=== PATIENT | male | born 1970 | race Caucasian/White ===

== ENCOUNTER 2024-12-08 12:29 | Outpatient (AMB) | payer OTHER, SELFPAY ==
--- NOTE | 2024-12-08 12:33 | MHC.PC.OV ---
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 by: Self / Same As Patient Allergies No Known Allergies Allergy (Verified 12/08/24 13:13) Medication List - Last Reconciled 12/08/24 by RICHELLE Ortiz atorvastatin 20 mg PO DAILY sertraline 50 mg PO DAILY Tobacco use date assessed: 12/08/24 Dental Screening Dental Screen Date: 12/08/24 Did you have a dental visit in the last 12 months?: No Did you have a dental problem in the last 6 months where you did not have access to dental care?: No Was dental information given to patient?: Patient declined [facility] Medical History Anxiety and depression Surgical History History of surgery of head S/P vasectomy S/P colonoscopy Family History Mother No problems noted. Father Prostate CA Social History Housing: Apartment Alcohol intake: never Patient Tobacco Use Status: Former Tobacco user e-Cigarette/Vaping Use: Never Used Second Hand Smoke Exposure: Yes Substance Use Type: Marijuana service: No Current occupational status: employed Current occupation: [employer] Current occupational exposures/hazards: No Cognitive needs: No Hearing needs: No Vision needs: Yes Questionnaire PHQ-9 Over the last 2 weeks, how often have you been bothered by any of the following problems? 1. Little interest or pleasure in doing things: not at all 2. Feeling down, depressed, or hopeless: not at all 3. Trouble falling or staying asleep, or sleeping too much: not at all 4. Feeling tired or having little energy: not at all 5. Poor appetite or overeating: not at all 6. Feeling bad about yourself - or that you are a failure or have let yourself or your family down: not at all 7. Trouble concentrating on things, such as reading the newspaper or watching television: not at all 8. Moving or speaking so slowly that other people could have noticed. Or the opposite - being so fidgety or restless that you have been moving around a lot more than usual: not at all 9. Thoughts that you would be better off or of hurting yourself in some way: not at all Total score: 0 Depression Screening Interpretation: Negative Depression Screening Done: Yes 72650 - PHQ-9 Billing: Yes Source: Developed by Drs. Fransisco Guardado, Kristy Lentz, Jose Mckeon and colleagues, with an educational robb from [employer]. Thrive Questionnaire Date Thrive assessed: 12/08/24 I am a: Patient What is your living situation today?: I have a steady place to live Within the past 12 months, did the food you bought not last and you didn't have the money to get more?: Never true Within the past 12 months, did you worry whether your food would run out before you got money to buy more?: Never true Do you have trouble paying for medicines?: No Do you have trouble getting transportation to medical appointments?: No Do you have trouble paying your heating and electricity bill?: No Do you have trouble taking care of your child, family member or friend?: No Do you have trouble with day-to-day activities such as bathing, preparing meals, shopping, managing finances, etc.?: No Are you currently unemployed and looking for a job?: No Are you interested in more education?: No Please select the resources that you would like help with: None Currently or been in a relationship where the following occur: No concerns reported THRIVE Score: 0 AUDIT C Alcohol Use Questionnaire (AUDIT-C) 1. How often do you have a drink containing alcohol?: Never 2. How many drinks containing alcohol do you have on a typical day when you are drinking?: 1 or 2 3. How often do you have six or more drinks on one occasion?: Never Total Score: 0 Score Reviewed/Action Taken: Yes CHINYERE-7 AMB Questionnaire CHINYERE-7 Date CHINYERE - 7 assessed: 12/08/24 Feeling nervous, anxious, or on edge: 0 = Not at all Not being able to stop or control worryin = Not at all Worrying too much about different things: 0 = Not at all Trouble relaxin = Not at all Being so restless that it is hard to sit still: 0 = Not at all Becoming easily annoyed or irritable: 0 = Not at all Feeling afraid as if something awful might happen: 0 = Not at all Total CHINYERE-7 score (0-4 normal; 5-9 mild; 10-14 moderate; 15-21 severe): 0 Source: Developed by Drs. Fransisco Guardado, Kristy Lentz, Jose Mckeon and colleagues, with an educational robb from [employer]. CHINYERE-7 Assessment Billing CHINYERE-7 Assessment Tool: CHINYERE-7 Assessment 98683 Physical exam (Primary Care) Vital Signs: Last Vital Signs Temp 97.9 F 12/08/24 12:35 Pulse 83 12/08/24 12:35 BP 116/72 12/08/24 12:35 Pulse Ox 96 12/08/24 12:35 BMI result Body Mass Index 27.9 Tobacco/Smoking Status: Tobacco use Status Tobacco use date assessed 12/08/24 12/08/24 12:35 Patient Tobacco Use Status Former Tobacco user 12/08/24 12:42 e-Cigarette/Vaping Use Never Used 12/08/24 12:42 PHQ-9: PHQ-9 Score PHQ-9: Total score 0 12/08/24 12:42 Depression Screening Interpretation: Negative Thrive Assessment: Date of Thrive Assessment Date Thrive assessed 12/08/24 12/08/24 12:35 Currently or been in a relationship where the following occur: No concerns reported Coding Level of Care Code New Pt Prev Care 40-64y(11650) Diagnoses Physical exam Z00.00 Screening for prostate cancer Z12.5 Lymph node enlargement R59.9 Smoker F17.200 Additional Codes CHINYERE-7 Assessment Billing - CHINYERE-7 Assessment Tool: CHINYERE-7 Assessment 46674 ([id number]) PHQ-9 - 15116 - PHQ-9 Billing: Yes ([id number]) Assessment & Plan Assessment & Plan (1) Physical exam: Code(s): Z00.00 - Encounter for general adult medical examination without abnormal findings Category: Medical (2) Screening for prostate cancer: Code(s): Z12.5 - Encounter for screening for malignant neoplasm of prostate Category: Medical (3) Lymph node enlargement: Code(s): R59.9 - Enlarged lymph nodes, unspecified Category: Medical (4) Smoker: Code(s): F17.200 - Nicotine dependence, unspecified, uncomplicated Category: Social Hx Plan . Orders: Orders Complete Blood Count Auto Diff Today Z00.00 - Encounter for general adult medical examination without abnormal findings UA CC w/rflx Micro + Cult Today Z00.00 - Encounter for general adult medical examination without abnormal findings Lipid Panel Today Z00.00 - Encounter for general adult medical examination without abnormal findings Prostate Specific Antigen Scr Today Z12.5 - Encounter for screening for malignant neoplasm of prostate US extremity nonvascular pimentel Today R59.9 - Enlarged lymph nodes, unspecified Comprehensive [place]. Panel Fast Today Z00.00 - Encounter for general adult medical examination without abnormal findings TSH reflex Free T4 Today Z00.00 - Encounter for general adult medical examination without abnormal findings Referrals Open Access Screening Colonoscopy Referral Z12.11 - Encounter for screening for malignant neoplasm of colon, Z12.12 - Encounter for screening for malignant neoplasm of rectum Lung Cancer Screening Referral F17.200 - Nicotine dependence, unspecified, uncomplicated
[2024-12-08 12:35] VITALS: BP 116/72; PULSE 83; TEMP 36.6; O2SAT 96; BMI 27.9
== END 2024-12-08 13:53 | disposition home or self-care (01) ==
PROVIDERS: PCP Nurse Practitioner Family; Visit Provider Nurse Practitioner Family
DX: Z00.00 Encounter for general adult medical examination without abnormal findings (principal); Z12.5 Encounter for screening for malignant neoplasm of prostate; R59.9 Enlarged lymph nodes, unspecified; F17.200 Nicotine dependence, unspecified, uncomplicated

== ENCOUNTER → 2024-12-08 12:29 | Outpatient (BNVA) | payer SELFPAY | PROVIDERS: PCP Nurse Practitioner Family; Visit Provider Nurse Practitioner Family | DX: Z00.00 Encounter for general adult medical examination without abnormal findings (principal); R59.9 Enlarged lymph nodes, unspecified; F41.9 Anxiety disorder, unspecified; F32.A Depression, unspecified; Z79.899 Other long term (current) drug therapy; Z87.891 Personal history of nicotine dependence | CPT/HCPCS: 96127 ==

== ENCOUNTER 2024-12-18 08:25 | Outpatient (REF) | payer OTHER, SELFPAY ==
--- NOTE | ~2024-12-18 | US_ITS ---
CLINICAL HISTORY: R59.9 - Enlarged lymph nodes, unspecified - LEFT AXILLARY US axilla limited Comparison: None Findings: There are no pathological appearing lymph nodes and no cystic or solid mass. IMPRESSION: Unremarkable axillary ultrasound. This document has been electronically signed by: Carlito El MD on 12/19/2024 09:09:52
[2024-12-18 10:20] LABS: MANUAL DIFF FLAG NO
[2024-12-18 10:25] LABS: Basophils Absolute Auto 0.1 X10*3/uL (0.0-0.2); Basophils Percent Auto 1.4 % (0-2); Eosinophils Absolute Auto 0.5 X10*3/uL (0.0-0.4); Eosinophils Percent Auto 4.9 % (0-4); Hematocrit 47.9 % (42.0-52.0); Hemoglobin 16.5 g/dl (14.0-18.0); Imm Gran Abs Auto 0.04 X10*3/uL (0.00-0.03); Imm Gran Pct Auto 0.4 % (0.0-0.4); Lymphocytes Absolute Auto 2.4 X10*3/uL (1.2-4.9); Mean Corpuscular HGB Conc 34.4 g/dl (31.0-36.0); Mean Corpuscular Hemoglobin 30.1 pg (27.0-33.0); Mean Corpuscular Volume 87.4 fL (80.0-98.0); Mean Platelet Volume 9.9 fL (9.4-12.4); Monocytes Absolute Auto 0.6 X10*3/uL (0.1-1.2); Neutrophils Absolute Auto 5.7 x10*3/uL (2.0-8.3); Neutrophils Percent Auto 61.3 % (45-73); Platelet Count 239 X10*3/uL (160-400); Red Blood Count 5.48 X10*6/uL (4.60-5.80); Red Cell Distribution Width 12.6 % (11.0-16.0); White Blood Count 9.3 X10*3/uL (4.8-10.8)
[2024-12-18 11:25] LABS: Alanine Aminotransferase 22 U/L (0-40); Alkaline Phosphatase 120 U/L (39-117); Anion Gap 9 (12-20); Aspartate Amino Transferase 24 U/L (5-37); Bilirubin Total 0.9 mg/dL (0.0-1.0); Blood Urea Nitrogen 18 mg/dL (9-16); Calcium 9.3 mg/dL (8.4-10.2); Carbon Dioxide 25 mmol/L (22-29); Chloride 109 mmol/L (96-108); Cholesterol 176 mg/dL (<200); Estimated Glomerular Filt Rate > 60; Glucose Fasting 105 mg/dL (60-99); HDL Cholesterol 42 mg/dL (>40); LDL Cholesterol Calculated 122 mg/dL (<100); Potassium 3.9 mmol/L (3.3-5.1); Sodium 139 mmol/L (135-145); Total Protein 7.5 g/dL (6.5-8.0); Triglycerides 64 mg/dL (<150)
[2024-12-18 11:28] LABS: Prostate Specific Antigen Scr 1.43 ng/mL (<0.05-4.0)
[2024-12-18 11:30] LABS: TSH reflex Free T4 1.07 uIU/mL (0.32-4.0)
[2024-12-18 14:07] LABS: Appearance Urine Clear; Color Urine Yellow; Glucose Urine UA Negative (Negative); Leukocyte Esterase Urine Negative (Negative); Nitrite Urine Negative (Negative); PH 5.5 (5.0-9.0); Urine Blood Negative (Negative); Urine Ketones Negative (Negative); Urine Protein Negative (Neg-Trace)
== END 2024-12-18 08:26 | disposition home or self-care (01) ==
LOC: HO.HMGCX 08:25
PROVIDERS: PCP Nurse Practitioner Family; Visit Provider Nurse Practitioner Family
DX: Z00.00 Encounter for general adult medical examination without abnormal findings (principal); Z12.5 Encounter for screening for malignant neoplasm of prostate; R59.9 Enlarged lymph nodes, unspecified
CPT/HCPCS: 36415; 76882; 80053; 80061; 81003; 84153; 84443; 85025

== ENCOUNTER → 2024-12-18 10:35 | Outpatient (BNV) | payer OTHER, SELFPAY | PROVIDERS: PCP Nurse Practitioner Family; Visit Provider Specialist | DX: R59.9 Enlarged lymph nodes, unspecified (principal) | CPT/HCPCS: 76882 ==

== ENCOUNTER 2025-01-18 14:44 | Outpatient (REF) | payer OTHER, SELFPAY ==
[2025-01-18 16:35] LABS: Gamma Glutamyl Transpeptidase 23 U/L (11-51)
[2025-01-21 05:58] LABS: Alk.Phos Iso. Macrohepatic 0 % (<=0); Alk.Phos Isoenzymes Bone 27 % (28-66); Alk.Phos Isoenzymes Intest 0 % (1-24); Alk.Phos Isoenzymes Liver 73 % (25-69); Alk.Phos Isoenzymes Placental 0 % (<=0); Alk.Phos Isoenzymes Total 103 U/L (35-144)
== END 2025-01-18 14:45 | disposition home or self-care (01) ==
LOC: HO.HMGCLDS 14:44
PROVIDERS: PCP Nurse Practitioner Family; Visit Provider Nurse Practitioner Family
DX: R74.8 Abnormal levels of other serum enzymes (principal)
CPT/HCPCS: 36415; 82977; 84080

== ENCOUNTER 2025-02-19 09:38 | Outpatient (AMB) | payer OTHER, SELFPAY ==
--- NOTE | 2025-02-19 07:53 | A.OFFVIS_ITS ---
Intake Visit Reasons: Former Smoker Allergies No Known Allergies Allergy (Verified 12/08/24 13:13) HPI HPI Former Smoker: Details: Initial visit for this 54yo smoker with a 30PYH. Patient started smoking at age 14 for 30 years at 1ppd. He quit cigarettes 09/24/2014. Reports daily marijuana use. . Denies second hand smoke exposure. 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 . Denies known family history of lung cancer. Denies personal history of cancers. Denies chest CT in last year. . Denies recent travel outside the [place]. Denies recent respiratory illness or recent hospitalization for respiratory iss ues. Reports testing positive for COVID once. Admits receiving COVID Vaccine. . Denies fever, chills, new/worsening cough, hemoptysis, hoarseness or dysphagia. Denies significant chest pain, significant dyspnea or unintentional weight loss. Patient Lung Cancer Screening Questionnaire reviewed with patient by provider. . Shared Decision Making Completed. Patient meets criteria. Discussed in detail with patient, the risk vs benefit of LDCT screening. Patient consents to proceed with scan. Discussed and encouraged continued smoking cessation. [facility] Medical History (Updated 02/19/25 @ 09:52 by Keely Pierce PA-C) Personal history of nicotine dependence Anxiety and depression Surgical History (Updated 02/19/25 @ 09:57 by Keely Pierce PA-C) History of surgery of head S/P vasectomy S/P colonoscopy Family History Mother No problems noted. Father Prostate CA Social History (Updated 02/19/25 @ 09:52 by Keely Pierce PA-C) Housing: Apartment Alcohol intake: never Patient Tobacco Use Status: Former Tobacco user Years Smoked: (onset 14yo, 1ppd x 30yrs, 30pyh, quit 09/24/14) e-Cigarette/Vaping Use: Never Used Second Hand Smoke Exposure: Yes Substance Use Type: Marijuana service: No Current occupational status: employed Current occupation: [employer] Current occupational exposures/hazards: No Cognitive needs: No Hearing needs: No Vision needs: Yes Assessment & Plan Assessment & Plan (1) Personal history of nicotine dependence: Comment: (onset 14yo, 1ppd x 30yrs, 30pyh, quit 09/24/14) Code(s): Z87.891 - Personal history of nicotine dependence Category: Medical Plan: - SDM visit completed today in office. - Patient meets criteria for LDCT for lung cancer screening purposes and is asymptomatic. - Smoking cessation counseling offered. Patients can always call [phone]. - Will arrange for a LDCT scan of the chest for screening purposes at [facility]. - Risks, benefits, and alternatives were discussed in detail and the patient agrees to proceed. - Risks discussed include but are not limited to: radiation exposure, anxiety during testing and while awaiting results, false negatives, false positives and possibility of additional intervention such as further imaging or surgical procedures for benign disease. - Benefits are obviously detection of lung cancer at an early stage which can lead to improved outcomes. - Discussed the importance of screening program compliance with adherence to yearly LDCT scan as scheduled - or sooner interval scans for personalized scree yanet regimen. - Discussed follow up plan. Our office will send a letter discussing results and if needed set up phone call and office visit based on CT findings. - Patient educated on results categorization and the management decisions for suspicious findings potentially found on the screening LDCT scan. Any patient with a Lung RADS score of 3 or 4 will be reviewed by a multidisciplinary team at [facility] to form a plan of action in regards to scan findings. - If further work up is warranted for a suspicious lung finding this will be followed by the Lung Cancer Screening program in conjunction with the Thoracic Surgery Department at [facility]. - A copy of the office note and LDCT will be sent to the patient's PCP - as well as documentation on any associated further plans of care. - Incidental findings on LDCT are the PCP's responsibility. These findings are indicated with an S finding on the LDCT Assessment. A note discussing the findings will be sent to the PCP who is then responsible for further management. - All questions answered.? Coding Level of Care Code Lung Cancer Screening G0296 Diagnoses Personal history of nicotine dependence Z87.891
== END 2025-02-19 10:01 | disposition home or self-care (01) ==
LOC: HO.HPS 09:39
PROVIDERS: PCP Nurse Practitioner Family; Referring Provider Nurse Practitioner Family; Visit Provider Physician Assistant Medical
DX: Z87.891 Personal history of nicotine dependence (principal)
CPT/HCPCS: G0296

== ENCOUNTER 2025-02-19 10:00 | Outpatient (REF) | payer OTHER, SELFPAY ==
--- NOTE | ~2025-02-19 | CT_ITS ---
CLINICAL HISTORY: Z87.891 - Personal history of nicotine dependence Personal history of nicotine dep endence; 200 lbs, 1 ppd X 29 yrs, quit X 11 yrs; Additional Information:-200 lbs, 1 ppd X 29 yrs, jenna t X [address] lung cancer screening (LDCT) Comparison: None Technique: Axial CT images of the chest using low-dose technique. Referring provider counseled the patient on shared decision-making for LDCT screening. Additional counseling was provided on smoking cessation. Effective radiation dose total: DLP 48.4 mGycm, CTDIvol 1.4 mGy. Findings: Lung: Mild emphysema. No pulmonary nodule. Coronary artery calcifications: None Limited upper abdomen: Unremarkable Other: None Impression: LungRADS 1: Negative exam. Continue annual screening with low dose Chest CT in 12 months. ##L1# Category 1: Normal; continue annual screening Category 2: Benign appearance or behavior, continue annual screening Category 3: Probably benign, [address] recommended Category 4A: Suspicious, [address] recommended; may consider PET/CT Category 4B: Suspicious, Additional diagnostics and/or tissue sampling recommended Category 4X: Suspicious, Additional diagnostics and/or tissue sampling recommended Category 0: Recalls (incomplete screen due to Incomplete coverage, Noise, Respiratory motion, Expiration, Obscured by acute abnormality) This document has been electronically signed by: Rossy Hillman MD on 02/19/2025 15:27:20
== END 2025-02-19 10:01 | disposition home or self-care (01) ==
LOC: HO.CT 10:00
PROVIDERS: PCP Nurse Practitioner Family; Visit Provider Physician Assistant Medical
DX: Z12.2 Encounter for screening for malignant neoplasm of respiratory organs (principal); Z87.891 Personal history of nicotine dependence
CPT/HCPCS: 71271; G0296

== ENCOUNTER → 2025-02-19 10:02 | Outpatient (BNV) | payer OTHER, SELFPAY | PROVIDERS: PCP Nurse Practitioner Family; Visit Provider Nuclear Medicine | DX: Z87.891 Personal history of nicotine dependence (principal) | CPT/HCPCS: 71271 ==

== ENCOUNTER 2025-05-03 15:21 | Outpatient (REF) | payer OTHER, SELFPAY ==
--- NOTE | ~2025-05-03 | US_ITS ---
EXAMINATION: US PELVIS LIMITED HISTORY: K40.90 - Unilateral inguinal hernia, without obstruction or gangrene, no... COMPARISON: There are no prior studies available for comparison. TECHNIQUE: Sonographic examination of the left inguinal region was performed. No hernia is identified. There is a subcentimeter normal-appearing lymph node. US/US pelvic limited IMPRESSION: No hernia is identified. Electronically signed by: Fransisco Maldonado MD 05/03/2025 03:38 PM EDT
== END 2025-05-03 15:22 | disposition home or self-care (01) ==
LOC: HO.HMGCX 15:21
PROVIDERS: PCP Nurse Practitioner Family; Visit Provider Nurse Practitioner Family
DX: K40.90 Unilateral inguinal hernia, without obstruction or gangrene, not specified as recurrent (principal)
CPT/HCPCS: 76857

== ENCOUNTER → 2025-05-03 15:23 | Outpatient (BNV) | payer OTHER, SELFPAY | PROVIDERS: PCP Nurse Practitioner Family; Visit Provider Radiology Diagnostic Radiology | DX: K40.90 Unilateral inguinal hernia, without obstruction or gangrene, not specified as recurrent (principal) | CPT/HCPCS: 76857 ==

== ENCOUNTER 2025-05-13 06:56 | Outpatient (AMB) | payer OTHER, SELFPAY ==
--- NOTE | 2025-05-13 07:13 | A.OFFPC_ITS ---
Intake Visit Reasons: Left hip concerns Allergies No Known Allergies Allergy (Verified 05/13/25 07:13) Medication List - Last Reconciled 05/13/25 by RICHELLE Ortiz atorvastatin 20 mg PO DAILY sertraline 50 mg PO DAILY Tobacco use date assessed: 12/08/24 Dental Screening Dental Screen Date: 12/08/24 HPI Left hip concerns HPI Details History of Present Illness The patient is a 54-year-old male presenting with chronic left hip pain. 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 He reports significant discomfort in the inner left hip, although there is no popping or clicking associated with the pain. The patient has experienced increased discomfort due to his occupational acti vities, leading to absences from work for three consecutive days, at one point. He denies any loss of use of the left lower extremity and has no symptoms suggestive of cauda equina syndrome. Review of Systems - Musculoskeletal: Reports severe left h ip pain, denies any popping or clicking. - Cardiovascular: Denies chest pain. - Respiratory: Denies shortness of breat h. - Neurological: Denies loss of use of le ft lower extremity, denies symptoms of cauda equina syndrome. Plan An x-ray of the left hip will be obtained to assess the underlying cause of the pain. Depending on the x-ray findings, the patient may be referred to physical therapy to address the discomfort and improve hip function. Further diagnostic imaging, such as an MRI, and an orthopedic consultation may be considered if the pain persists or if the x-ray reveals significant findings. A note will be provided to excuse the patient from work due to the severity of the pain and its impact on his ability to perform job duties. Patient was informed and verbally consented to the use of an ambient scribe for clinic note documentation during this visit. Discussion Notes I discussed with the patient the plan to obtain an x-ray of the left hip to evaluate the cause of his pain. We talked about the possibility of referring him to physical therapy and potentially obtaining an MRI or consulting orthopedics based on the x-ray results. I also agreed to provide a note to excuse him from work due to his pain-related absences. Patient Instructions - Follow up with x-ray results to determ ine the next steps in management. - Attend physical therapy if referred to help alleviate hip pain. - Rest and avoid activities that exacerb ate hip pain. - Use the work excuse note provided for absences due to pain. [facility] Medical History (Updated 05/13/25 @ 07:03 by RICHELLE Ortiz) Personal history of nicotine dependence Anxiety and depression Surgical History (Updated 02/19/25 @ 09:57 by Keely Pierce PA-C) History of surgery of head S/P vasectomy S/P colonoscopy Family History Mother No problems noted. Father Prostate CA Social History (Updated 02/19/25 @ 09:52 by Keely iPerce PA-C) Housing: Apartment Alcohol intake: never Patient Tobacco Use Status: Former Tobacco user Years Smoked: (onset 14yo, 1ppd x 30yrs, 30pyh, quit 09/24/14) e-Cigarette/Vaping Use: Never Used Second Hand Smoke Exposure: Yes Substance Use Type: Marijuana service: No Current occupational status: employed Current occupation: [employer] Current occupational exposures/hazards: No Cognitive needs: No Hearing needs: No Vision needs: Yes Questionnaire Thrive Questionnaire Date Thrive assessed: 12/01/24 I am a: Patient What is your living situation today?: I have a steady place to live Within the past 12 months, did the food you bought not last and you didn't have the money to get more?: Never true Within the past 12 months, did you worry whether your food would run out before you got money to buy more?: Never true Do you have trouble paying for medicines?: No Do you have trouble getting transportation to medical appointments?: No Do you have trouble paying your heating and electricity bill?: No Do you have trouble taking care of your child, family member or friend?: No Do you have trouble with day-to-day activities such as bathing, preparing meals, shopping, managing finances, etc.?: No Are you currently unemployed and looking for a job?: No Are you interested in more education?: No Please select the resources that you would like help with: None Currently or been in a relationship where the following occur: No concerns reported THRIVE Score: 0 CHINYERE-7 AMB Questionnaire CHINYERE-7 Date CHINYERE - 7 assessed: 12/08/24 Source: Developed by Drs. Franssico Guardado, Kristy Lentz, Jose Mckeon and colleagues, with an educational robb from [employer]. Physical exam (Primary Care) Tobacco/Smoking Status: Tobacco use Status Tobacco use date assessed 12/08/24 12/08/24 12:35 Patient Tobacco Use Status Former Tobacco user 02/19/25 09:52 e-Cigarette/Vaping Use Never Used 02/19/25 09:52 Thrive Assessment: Date of Thrive Assessment Date Thrive assessed 12/01/24 02/15/25 19:19 Currently or been in a relationship where the following occur: No concerns reported Telehealth Telehealth Telehealth Platform: [facility] Location of provider rendering services: practice address Location of patient: address on file Patient Identification confirmed using: Name, : Yes Telehealth method: video Patient verbally consented to treatment: Yes Patient verbally consented to billing insurance company: Yes Patient informed of any privacy concerns related to visit: Yes Minutes spent on Phone/Video with Pt.: 12 Coding Level of Care Code Tele Est Pt Level 3 (43975) Diagnoses Hip pain, left M25.552 Assessment & Plan Assessment & Plan (1) Hip pain, left: Code(s): M25.552 - Pain in left hip Category: Medical Plan . Orders: Orders XR hip RT min 2V Today M25.552 - Pain in left hip
== END 2025-05-13 07:34 | disposition home or self-care (01) ==
LOC: HO.HMCC 06:56
PROVIDERS: PCP Nurse Practitioner Family; Visit Provider Nurse Practitioner Family
DX: M25.552 Pain in left hip (principal)

== ENCOUNTER 2025-05-13 06:56 | Outpatient (REF) | payer OTHER, SELFPAY ==
--- NOTE | ~2025-05-13 | XR_ITS ---
CLINICAL HISTORY: M25.552 - Pain in left hip 2 view, pelvis and left hip Comparison: None provided Findings: The bones are intact. No significant arthritic change. The soft tissues are unremarkable. IMPRESSION: No acute findings. This document has been electronically signed by: Sumeet Avalos MD on 05/14/2025 20:00:07
== END 2025-05-13 06:57 | disposition home or self-care (01) ==
LOC: HO.HMGCX 06:56
PROVIDERS: PCP Nurse Practitioner Family; Visit Provider Nurse Practitioner Family
DX: M25.552 Pain in left hip (principal)
CPT/HCPCS: 73502

== ENCOUNTER → 2025-05-13 14:06 | Outpatient (BNV) | payer OTHER, SELFPAY | PROVIDERS: PCP Nurse Practitioner Family; Visit Provider Radiology Diagnostic Radiology | DX: M25.552 Pain in left hip (principal) | CPT/HCPCS: 73502 ==

== ENCOUNTER 2025-05-25 06:39 | Outpatient (AMB) | payer OTHER, SELFPAY ==
--- NOTE | 2025-05-25 07:40 | A.OFFPC_ITS ---
Intake Visit Reasons: return to work paperwork Allergies No Known Allergies Allergy (Verified 05/13/25 07:13) Tobacco use date assessed: 12/08/24 Dental Screening Dental Screen Date: 12/08/24 HPI return to work paperwork HPI Details History of Present Illness The patient is a 54-year-old male presenting with chronic hip and back pain. The pain is aggravated by work conditions, particularly due to low table heights that require stooping and kneeling. He has been on FMLA leave due to the severity of the discomfort. The patient believes his hip pain is primarily due to working at tables that are only 18 inches tall, necessitating awkward postures. He has been advised to work at tables that are at least waist height to alleviate symptoms. He is also restricted from lifting over 20 pounds at one time to prevent symptom exacerbation. Review of Systems - Musculoskeletal: Reports chronic hip a nd back pain exacerbated by stooping and kneeling. Plan The patient will receive a work note to return with restrictions to manage his chronic hip and back pain. He should work at tables that are at least waist height to avoid stooping and kneeling, which worsen his symptoms. He is also restricted from lifting over 20 pounds to prevent further discomfort. Discussion Notes I discussed with the patient the importance of adhering to work restrictions to manage his chronic hip and back pain. We agreed on the necessity of working at tables that are at least waist height and avoiding lifting over 20 pounds. Patient Instructions - Return to work with provided restricti ons. - Work at tables that are at least waist height. - Do not lift over 20 pounds. [facility] Medical History (Updated 05/13/25 @ 07:03 by RICHELLE Ortiz) Personal history of nicotine dependence Anxiety and depression Surgical History (Updated 02/19/25 @ 09:57 by Keely Pierce PA-C) History of surgery of head S/P vasectomy S/P colonoscopy Family History Mother No problems noted. Father Prostate CA Social History (Updated 02/19/25 @ 09:52 by Keely Pierce PA-C) Housing: Apartment Alcohol intake: never Patient Tobacco Use Status: Former Tobacco user Years Smoked: (onset 14yo, 1ppd x 30yrs, 30pyh, quit 09/24/14) e-Cigarette/Vaping Use: Never Used Second Hand Smoke Exposure: Yes Substance Use Type: Marijuana service: No Current occupational status: employed Current occupation: [employer], for [employer] Current occupational exposures/hazards: No Cognitive needs: No Hearing needs: No Vision needs: Yes Questionnaire Thrive Questionnaire Date Thrive assessed: 12/01/24 I am a: Patient What is your living situation today?: I have a steady place to live Within the past 12 months, did the food you bought not last and you didn't have the money to get more?: Never true Within the past 12 months, did you worry whether your food would run out before you got money to buy more?: Never true Do you have trouble paying for medicines?: No Do you have trouble getting transportation to medical appointments?: No Do you have trouble paying your heating and electricity bill?: No Do you have trouble taking care of your child, family member or friend?: No Do you have trouble with day-to-day activities such as bathing, preparing meals, shopping, managing finances, etc.?: No Are you currently unemployed and looking for a job?: No Are you interested in more education?: No Please select the resources that you would like help with: None Currently or been in a relationship where the following occur: No concerns reported THRIVE Score: 0 CHINYERE-7 AMB Questionnaire CHINYERE-7 Date CHINYERE - 7 assessed: 12/08/24 Source: Developed by Drs. Fransisco Guardado, Kristy Lentz, Jose Mckeon and colleagues, with an educational robb from [employer]. Physical exam (Primary Care) Tobacco/Smoking Status: Tobacco use Status Tobacco use date assessed 12/08/24 05/25/25 07:41 Patient Tobacco Use Status Former Tobacco user 05/25/25 07:41 e-Cigarette/Vaping Use Never Used 05/25/25 07:41 Thrive Assessment: Date of Thrive Assessment Date Thrive assessed 12/01/24 05/25/25 07:41 Currently or been in a relationship where the following occur: No concerns reported Telehealth Telehealth Telehealth Platform: [facility] Location of provider rendering services: practice address Location of patient: address on file Patient Identification confirmed using: Name, : Yes Telehealth method: video Patient verbally consented to treatment: Yes Patient verbally consented to billing insurance company: Yes Patient informed of any privacy concerns related to visit: Yes Minutes spent on Phone/Video with Pt.: 12 Coding Level of Care Code Tele Est Pt Level 3 (81553) Diagnoses Hip pain, left M25.552 Assessment & Plan Assessment & Plan (1) Hip pain, left: Code(s): M25.552 - Pain in left hip Category: Medical Plan .
== END 2025-05-25 11:45 | disposition home or self-care (01) ==
LOC: HO.HMCC 06:40
PROVIDERS: PCP Nurse Practitioner Family; Visit Provider Nurse Practitioner Family
DX: M25.552 Pain in left hip (principal)

== ENCOUNTER 2025-06-15 06:45 | Outpatient (AMB) | payer OTHER, SELFPAY ==
--- NOTE | 2025-06-15 07:13 | MHC.PC.OV ---
Intake Visit Reasons: Forms Allergies No Known Allergies Allergy (Verified 05/13/25 07:13) Tobacco use date assessed: 12/08/24 Dental Screening Dental Screen Date: 12/08/24 HPI Forms HPI Details Chief Complaint The patient presents with left hip pain. History of Present Illness The patient is a 54-year-old male presenting with left hip pain. The pain is associated with his job, which requires frequent bending and stooping, potentially exacerbating his hip and back discomfort. The patient has not yet started physical therapy, although it has been recommended. X-rays have shown no acute findings, and the patient is awaiting further intervention through physical therapy. Social History - Employment: The patient's job involves frequent bending and stooping, which may contribute to his hip pain. 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 Clear to auscultation bilaterally Cardiovascular: Regular rate and rhythm. Normal S1 and S2 GI: Normal to inspection. Soft to palpation and nontender Skin: No rashes or lesions noted Neuro: Patient oriented x3 Extremities: Normal to inspection, except for left hip pain noted Results - X-rays: No acute findings noted. Plan The plan for the patient includes initiating physical therapy to address the left hip pain, as it has not yet been started. The patient will be monitored for any changes in symptoms, and further diagnostic evaluations will be considered if necessary. Discussion Notes I discussed with the patient the importance of starting physical therapy to manage his left hip pain. We reviewed the X-ray results, which showed no acute findings, and I assured him that we would continue to monitor his condition and adjust the treatment plan as needed. Patient Instructions - Begin physical therapy as soon as possible to help alleviate hip pain. - Follow up with the clinic if there are any changes in symptoms or if the pain worsens. [facility] Medical History Personal history of nicotine dependence Anxiety and depression Surgical History History of surgery of head S/P vasectomy S/P colonoscopy Family History Mother No problems noted. Father Prostate CA Social History Housing: Apartment Alcohol intake: never Patient Tobacco Use Status: Former Tobacco user Years Smoked: (onset 14yo, 1ppd x 30yrs, 30pyh, quit 09/24/14) e-Cigarette/Vaping Use: Never Used Second Hand Smoke Exposure: Yes Substance Use Type: Marijuana service: No Current occupational status: employed Current occupation: [employer], [employer] Current occupational exposures/hazards: No Cognitive needs: No Hearing needs: No Vision needs: Yes Questionnaire Thrive Questionnaire Date Thrive assessed: 12/01/24 I am a: Patient What is your living situation today?: I have a steady place to live Within the past 12 months, did the food you bought not last and you didn't have the money to get more?: Never true Within the past 12 months, did you worry whether your food would run out before you got money to buy more?: Never true Do you have trouble paying for medicines?: No Do you have trouble getting transportation to medical appointments?: No Do you have trouble paying your heating and electricity bill?: No Do you have trouble taking care of your child, family member or friend?: No Do you have trouble with day-to-day activities such as bathing, preparing meals, shopping, managing finances, etc.?: No Are you currently unemployed and looking for a job?: No Are you interested in more education?: No Please select the resources that you would like help with: None Currently or been in a relationship where the following occur: No concerns reported THRIVE Score: 0 CHINYERE-7 AMB Questionnaire CHINYERE-7 Date CHINYERE - 7 assessed: 12/08/24 Source: Developed by Drs. Fransisco Guardado, Kristy Lentz, Jose Mckeon and colleagues, with an educational robb from [employer]. Physical exam (Primary Care) Tobacco/Smoking Status: Tobacco use Status Tobacco use date assessed 12/08/24 05/25/25 07:41 Patient Tobacco Use Status Former Tobacco user 05/25/25 07:41 e-Cigarette/Vaping Use Never Used 05/25/25 07:41 Thrive Assessment: Date of Thrive Assessment Date Thrive assessed 12/01/24 05/25/25 07:41 Currently or been in a relationship where the following occur: No concerns reported Telehealth Telehealth Telehealth Platform: [employer] Location of provider rendering services: practice address Location of patient: address on file Patient Identification confirmed using: Name, : Yes Telehealth method: video Patient verbally consented to treatment: Yes Patient verbally consented to billing insurance company: Yes Patient informed of any privacy concerns related to visit: Yes Minutes spent on Phone/Video with Pt.: 10 Coding Level of Care Code Tele Est Pt Level 3 (74852) Diagnoses Hip pain, left M25.552 Assessment & Plan Assessment & Plan (1) Hip pain, left: Code(s): M25.552 - Pain in left hip Category: Medical Plan . Orders: Orders PT Evaluation and Treatment Today M25.552 - Pain in left hip
== END 2025-06-15 07:59 | disposition home or self-care (01) ==
LOC: HO.HMCC 06:46
PROVIDERS: PCP Nurse Practitioner Family; Visit Provider Nurse Practitioner Family
DX: M25.552 Pain in left hip (principal)

== ENCOUNTER 2025-08-25 06:38 | Outpatient (AMB) | payer OTHER, SELFPAY ==
--- NOTE | 2025-08-25 08:11 | MHC.PC.OV ---
Intake Visit Reasons: PFML Allergies No Known Allergies Allergy (Verified 05/13/25 07:13) Tobacco use date assessed: 12/08/24 Dental Screening Dental Screen Date: 12/08/24 HPI PFML HPI Details History of Present Illness The patient is a 55-year-old male presenting with left hip pain. The left hip pain is ongoing, and the patient is currently undergoing physical therapy, which is expected to continue for another six weeks. He is also scheduled to see an payroll accounting specialist for further evaluation of his hip pain. XR was negative. Pt reports the pain is excruciating. FMLA will cont to be out until diagnosis is made and treatment is in place, though hoping PT helps Review of Systems Plan 1. Left Hip Pain The patient is currently undergoing physical therapy for his left hip pain, which will continue for another six weeks. He is also scheduled to consult with an payroll accounting specialist for further evaluation and management of his condition. Discussion Notes I discussed with the patient the ongoing management of his left hip pain, including the continuation of physical therapy for six more weeks. I also informed him about the upcoming consultation with an payroll accounting specialist to gain further insights and recommendations for his condition. Patient Instructions - Continue with physical therapy as scheduled for the next six weeks. - Attend the appointment with the payroll accounting specialist for further evaluation. HPI Comments History of Present Illness Details History of Present Illness The patient is a 55-year-old male presenting with left hip pain. The left hip pain is ongoing, and the patient is currently undergoing physical therapy, which is expected to continue for another six weeks. He is also scheduled to see an payroll accounting specialist for further evaluation of his hip pain. XR was negative. Pt reports the pain is excruciating. FMLA will cont to be out until diagnosis is made and treatment is in place, though hoping PT helps Review of Systems Plan 1. Left Hip Pain The patient is currently undergoing physical therapy for his left hip pain, which will continue for another six weeks. He is also scheduled to consult with an payroll accounting specialist for further evaluation and management of his condition. Discussion Notes I discussed with the patient the ongoing management of his left hip pain, including the continuation of physical therapy for six more weeks. I also informed him about the upcoming consultation with an payroll accounting specialist to gain further insights and recommendations for his condition. Patient Instructions - Continue with physical therapy as scheduled for the next six weeks. - Attend the appointment with the payroll accounting specialist for further evaluation. PFSH Medical History Personal history of nicotine dependence Anxiety and depression Surgical History History of surgery of head S/P vasectomy S/P colonoscopy Family History Mother No problems noted. Father Prostate CA Social History Housing: Apartment Alcohol intake: never Patient Tobacco Use Status: Former Tobacco user Years Smoked: (onset 14yo, 1ppd x 30yrs, 30pyh, quit 09/24/14) e-Cigarette/Vaping Use: Never Used Second Hand Smoke Exposure: Yes Substance Use Type: Marijuana service: No Current occupational status: employed Current occupation: [employer], for [employer] Current occupational exposures/hazards: No Cognitive needs: No Hearing needs: No Vision needs: Yes Questionnaire Thrive Questionnaire Date Thrive assessed: 12/01/24 I am a: Patient What is your living situation today?: I have a steady place to live Within the past 12 months, did the food you bought not last and you didn't have the money to get more?: Never true Within the past 12 months, did you worry whether your food would run out before you got money to buy more?: Never true Do you have trouble paying for medicines?: No Do you have trouble getting transportation to medical appointments?: No Do you have trouble paying your heating and electricity bill?: No Do you have trouble taking care of your child, family member or friend?: No Do you have trouble with day-to-day activities such as bathing, preparing meals, shopping, managing finances, etc.?: No Are you currently unemployed and looking for a job?: No Are you interested in more education?: No Please select the resources that you would like help with: None Currently or been in a relationship where the following occur: No concerns reported THRIVE Score: 0 CHINYERE-7 AMB Questionnaire CHINYERE-7 Date CHINYERE - 7 assessed: 12/08/24 Source: Developed by Drs. Fransisco L. Kristy Guardado Kurt Kroenke and colleagues, with an educational robb from [employer]. Physical exam (Primary Care) Tobacco/Smoking Status: Tobacco use Status Tobacco use date assessed 12/08/24 06/15/25 07:16 Patient Tobacco Use Status Former Tobacco user 06/15/25 07:16 e-Cigarette/Vaping Use Never Used 06/15/25 07:16 Thrive Assessment: Date of Thrive Assessment Date Thrive assessed 12/01/24 06/15/25 07:16 Currently or been in a relationship where the following occur: No concerns reported Telehealth Telehealth Telehealth Platform: [facility] Location of patient: address on file Patient Identification confirmed using: Name, : Yes Telehealth method: video Patient verbally consented to treatment: Yes Patient verbally consented to billing insurance company: Yes Patient informed of any privacy concerns related to visit: Yes Minutes spent on Phone/Video with Pt.: 12 Coding Level of Care Code Tele Est Pt Level 3 (37694) Diagnoses Hip pain, left M25.552 Assessment & Plan Assessment & Plan (1) Hip pain, left: Code(s): M25.552 - Pain in left hip Category: Medical Plan .
== END 2025-08-25 08:19 | disposition home or self-care (01) ==
LOC: HO.HMCC 06:39
PROVIDERS: PCP Nurse Practitioner Family; Visit Provider Nurse Practitioner Family
DX: M25.552 Pain in left hip (principal)